=== PATIENT | female | born 2000 | race Caucasian/White ===

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

== ENCOUNTER 2021-06-16 23:21 | Emergency (ER) | payer MEDICAID ==
--- NOTE | 2021-06-16 23:22 | ERPHSYRPT ---
- History of Present Illness Time Seen by Provider: 06/16/21 23:22 Historian: patient, family Physician History: This is a 20 y/o obese white female patient who presents with cp that began this evening. it was central and nonradiating. pt states she is always anxious and smoked a lot more marijuana today than she normally does. marijuana makes her paranoid. she then began looking on internet and became more anxious. she refuses iv but will allow urinalysis, drug screen and blood work. pt has no documented cardiac issues. pt is not sob, she has no abd pain and denies cough and fever. she states, at the time of my h&p she no longer has cp Timing/Duration: today Quality: aching Location: substernal, central Severity of Pain-Max: mild (to mod) Severity of Pain-Current: none Modifying Factors: Improves With: nothing Associated Symptoms: denies symptoms Nitro Today/Relief: no nitro taken today Aspirin Treatment Today: no aspirin today Allergies/Adverse Reactions: No Known Drug Allergies Allergy (Verified 06/16/21 23:21) Home Medications: No Reportable Medications [No Reported Medications] 11/25/19 [History] Hx Tetanus, Diphtheria Vaccination/Date Given: No Hx Influenza Vaccination/Date Given: No Hx Pneumococcal Vaccination/Date Given: No Travel Risk - International Travel Have you traveled outside of the country in past 3 weeks: No - Coronavirus Screening Are you exhibiting any of the following symptoms?: No Close contact with a COVID-19 positive Pt in past 14-21 Days: No - Review of Systems Constitutional: No Symptoms Eyes: No Symptoms Ears, Nose, & Throat: No Symptoms Respiratory: No Symptoms Cardiac: Chest Pain Abdominal/Gastrointestinal: No Symptoms Genitourinary Symptoms: No Symptoms Musculoskeletal: No Symptoms Skin: No Symptoms Neurological: No Symptoms Psychological: No Symptoms Endocrine: No Symptoms Hematologic/Lymphatic: No Symptoms Immunological/Allergic: No Symptoms All Other Systems: Reviewed and Negative - Past Medical History Pertinent Past Medical History: Yes 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 - Past Surgical History Past Surgical History: Yes - Social History Smoking Status: Current every day smoker How long have you smoked: 2 years Exposure to second hand smoke: Yes Drug Use: none Patient Lives Alone: No - Nursing Vital Signs Nursing Vital Signs: Initial Vital Signs Temperature 98.9 F 06/16/21 23:22 Pulse Rate 120 H 06/16/21 23:22 Respiratory Rate 20 06/16/21 23:22 Blood Pressure 151/87 06/16/21 23:22 O2 Sat by Pulse Oximetry 99 06/16/21 23:22 Pain Scale Pain Intensity 6 - Physical Exam General Appearance: no apparent distress, alert, anxiety, obese Eye Exam: PERRL/EOMI, eyes nml inspection Ears, Nose, Throat Exam: normal ENT inspection, moist mucous membranes Neck Exam: normal inspection, non-tender, supple, full range of motion Respiratory Exam: normal breath sounds, lungs clear, airway intact, No chest tenderness, No respiratory distress Cardiovascular Exam: tachycardia Gastrointestinal/Abdomen Exam: soft, normal bowel sounds, No tenderness Pelvic Exam: not done Rectal Exam: not done Back Exam: normal inspection, normal range of motion, No CVA tenderness, No vertebral tenderness Extremity Exam: normal inspection, normal range of motion, pelvis stable Neurologic Exam: alert, oriented x 3, cooperative, 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 no comparison ekg) Ordered Tests: Active Orders 24 hr Category Date Time Status Bladder Tier STAT Care 06/16/21 23:36 Active EKG-ER Only STAT Care 06/16/21 23:36 Active Pulse Oximetry (ED) STAT Care 06/16/21 23:36 Active CBC W DIFF Stat Lab 06/16/21 23:36 Ordered CMP Stat Lab 06/16/21 23:36 Ordered D-DIMER QUANTITATIVE Stat Lab 06/16/21 23:36 Ordered TROPONIN Q3H Lab 06/16/21 23:45 Ordered TROPONIN Q3H Lab 06/17/21 02:45 Ordered TROPONIN Q3H Lab 06/17/21 05:45 Ordered TROPONIN Q3H Lab 06/17/21 08:45 Ordered TROPONIN Q3H Lab 06/17/21 11:45 Ordered Urine Triage Profile Stat Lab 06/16/21 23:55 Ordered - Progress Progress: improved Air Movement: good Progress Note: 06/16/21 23:59 pt now declines blood draw. she is going to sign out ama. i spent a great deal of time explaining to her the need to rule out myocardial infarction, pulmonary embolus or other life threatening entities. she feels now it is her anxiety. she does not want any further testing done. i explained in detail the risks of not completing tests including and the benefits of staying to have tests drawn and resulted. she refuses. she will sign ama form Blood Culture(s) Obtained: No Antibiotics given: No Counseled pt/family regarding: lab results, diagnosis, need for follow-up - Departure Departure Disposition: AMA Clinical Impression: Sinus tachycardia, Chest pain, Anxiety Condition: Fair Critical Care Time: No Referrals: JOE REGALADO [Primary Care Provider] - Follow up/PCP as directed Additional Instructions: stop smoking marijuana. return to Emergency department if symptoms recur/worsen. follow up with primary doctor today for further evaluation and management
[2021-06-16 23:40] VITALS: BP 151/87; PULSE 120
[2021-06-16 23:48] VITALS: O2SAT 97
[2021-06-17 00:17] LABS: Amphetamine,Urine NEGATIVE (NEGATIVE); Barbiturate,Urine NEGATIVE (NEGATIVE); Cocaine,Urine NEGATIVE (NEGATIVE); Methadone,Urine NEGATIVE (NEGATIVE); Opiate,Urine NEGATIVE (NEGATIVE); PCP,Urine NEGATIVE (NEGATIVE); THC,Urine POSITIVE (NEGATIVE)
[2021-06-17 01:19] LABS: Benzodiazepine,Urine NEGATIVE (NEGATIVE)
== END 2021-06-17 00:05 | disposition left against medical advice (07) ==
LOC: ED 23:21
DX: R00.0 Tachycardia, unspecified (principal); R07.9 Chest pain, unspecified; F41.9 Anxiety disorder, unspecified; Z72.0 Tobacco use
CPT/HCPCS: 80307; 93005; 93041; 94760; 99284

== ENCOUNTER 2021-09-01 18:13 | Emergency (ER) | payer MEDICAID ==
--- NOTE | 2021-09-01 19:00 | ERPHSYRPT ---
- History of Present Illness Source: patient Exam Limitations: no limitations Patient Subjective Stated Complaint: Cough Triage Nursing Assessment: Patient ambulated back to ED and transferred self to bed. Patient A+O X 3. Patient's skin pink, warm and dry. Patient complains of occasional non productive cough. Patient states when she cough sometimes she will have intermittent pains in her chest. Patient currently denies pain or discomfort. Lungs clear a/p marquis. Timing/Duration: day(s) (3) Cough Quality/Degree: dry cough Possible Cause: occasional episodes Hx Tetanus, Diphtheria Vaccination/Date Given: No Hx Influenza Vaccination/Date Given: No Hx Pneumococcal Vaccination/Date Given: No Immunizations Up to Date: Yes <ILIR GOMEZ - Last Filed: 09/01/21 18:53> <JOSE BATES - Last Filed: 09/01/21 21:46> - History of Present Illness Time Seen by Provider: 09/01/21 19:00 Physician History: ForPatient is a 24-year-old white female with a cough nonproductive in nature for 3 days she complains of pain with her deep breath or cough says her lungs hurt. She has been dizzy occasionally with some hot flashes she gets the shakes but she denies any sore throat she has had no COVID-vaccine she has had some nausea vomiting and diarrhea but no fever chills or sweats. (ILIR GOMEZ) Allergies/Adverse Reactions: No Known Drug Allergies Allergy (Verified 09/01/21 18:14) Home Medications: No Reportable Medications [No Reported Medications] 11/25/19 [History] Travel Risk - International Travel Have you traveled outside of the country in past 3 weeks: No - Coronavirus Screening Are you exhibiting any of the following symptoms?: No Close contact with a COVID-19 positive Pt in past 14-21 Days: No - Vaccine Status Have you recieved a Covid-19 vaccination: No <ILIR GOMEZ - Last Filed: 09/01/21 18:53> - Review of Systems Constitutional: No Fever, No Chills Eyes: No Symptoms Ears, Nose, & Throat: No Symptoms Respiratory: Cough, No Dyspnea Cardiac: Chest Pain, No Edema, No Syncope Abdominal/Gastrointestinal: Nausea, Vomiting, Diarrhea, No Abdominal Pain Genitourinary Symptoms: No Dysuria Musculoskeletal: No Back Pain, No Neck Pain Skin: No Rash Neurological: No Dizziness, No Focal Weakness, No Sensory Changes Psychological: No Symptoms Endocrine: No Symptoms All Other Systems: Reviewed and Negative <ILIR GOMEZ - Filed: 09/01/21 18:53> - Past Medical History Pertinent Past Medical History: Yes Neurological History: No Pertinent History ENT History: Other Cardiac History: No Pertinent History Respiratory History: No Pertinent History Endocrine Medical History: No Pertinent History Musculoskeletal History: No Pertinent History GI Medical History: No Pertinent History History: No Pertinent History Psycho-Social History: Anxiety Female Reproductive Disorders: No Pertinent History 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 - Past Surgical History Past Surgical History: Yes Neuro Surgical History: No Pertinent History Cardiac: No Pertinent History Respiratory: No Pertinent History Gastrointestinal: No Pertinent History Genitourinary: No Pertinent History Musculoskeletal: No Pertinent History Female Surgical History: No Pertinent History - Social History Smoking Status: Current every day smoker How long have you smoked: 2 years Exposure to second hand smoke: Yes Drug Use: none Patient Lives Alone: No - Female History Hx Last Menstrual Period: last month Hx Now: No <ILIR GOMEZ Filed: 09/01/21 18:53> - Physical Exam General Appearance: no apparent distress, alert Eye Exam: PERRL/EOMI, eyes nml inspection Ears, Nose, Throat Exam: normal ENT inspection, TMs normal, pharynx normal, moist mucous membranes Neck Exam: normal inspection, non-tender, supple, full range of motion Respiratory Exam: normal breath sounds, lungs clear, No respiratory distress Cardiovascular Exam: regular rate/rhythm, normal heart sounds Gastrointestinal/Abdomen Exam: soft, No tenderness Back Exam: normal inspection, No CVA tenderness, No vertebral tenderness Extremity Exam: normal inspection, normal range of motion Neurologic Exam: alert, oriented x 3, cooperative, normal mood/affect, sensation nml, No motor deficits Skin Exam: normal color, warm, dry, No rash Lymphatic Exam: No adenopathy SpO2: 98 <ILIR GOMEZ Filed: 09/01/21 18:53> - Nursing Vital Signs Nursing Vital Signs: Initial Vital Signs Temperature 98.2 F 09/01/21 18:16 Pulse Rate 97 H 09/01/21 18:16 Respiratory Rate 18 09/01/21 18:16 Blood Pressure 133/88 09/01/21 18:16 O2 Sat by Pulse Oximetry 98 09/01/21 18:16 Pain Scale Pain Intensity 2 - Course Nursing assessment & vital signs reviewed: Yes EKG Interpreted by Me: RATE, Sinus Rhythm, NORMAL AXIS, NORMAL INTERVALS, NORMAL QRS <ILIR GOMEZ - Last Filed: 09/01/21 18:53> - Course EKG Interpreted by Me: RATE - Radiology Exams Chest X-ray Interpretation: Interpreted by me (No infiltrate or consolidation. Normal cardiac silhouette. Intact bony thorax.) <JOSE BATES - Last Filed: 09/01/21 21:46> Ordered Tests: Active Orders 24 hr Category Date Time Status EKG-ER Only STAT Care 09/01/21 19:06 Active CHEST 1 VIEW (PORTABLE) Stat Exams 09/01/21 19:06 Taken CBC W DIFF Stat Lab 09/01/21 20:45 Completed CMP Stat Lab 09/01/21 20:45 Completed D-DIMER QUANTITATIVE Stat Lab 09/01/21 20:45 Completed NT PRO BNP Stat Lab 09/01/21 20:45 Completed TROPONIN Q3H Lab 09/01/21 20:45 Completed TROPONIN Q3H Lab 09/01/21 22:15 Ordered TROPONIN Q3H Lab 09/02/21 01:15 Ordered TROPONIN Q3H Lab 09/02/21 04:15 Ordered TROPONIN Q3H Lab 09/02/21 07:15 Ordered Medication Summary Generic Name Dose Route Start Last Admin Trade Name Freq PRN Reason Stop Dose Admin Sodium Chloride 1,000 mls @ 100 mls/hr 09/01/21 19:15 09/01/21 19:59 Sodium Chloride 0.9% 1000 Ml IV 10/01/21 19:14 Not Given .Q10H AKHIL Discontinued Medications Generic Name Dose Route Start Last Admin Trade Name Freq PRN Reason Stop Dose Admin Acetaminophen 650 mg 09/01/21 21:35 09/01/21 21:37 Acetaminophen 325 Mg Tablet PO 09/01/21 21:36 650 mg STAT STA Administration Acetaminophen Confirm 09/01/21 21:36 Acetaminophen 325 Mg Tablet Administered 09/01/21 21:37 Dose 650 mg .ROUTE .STK-MED ONE Alprazolam 0.25 mg 09/01/21 19:48 09/01/21 19:58 Alprazolam 0.25 Mg Tablet PO 09/01/21 19:49 0.25 mg STAT ONE Administration Alprazolam Confirm 09/01/21 19:57 Alprazolam 0.25 Mg Tablet Administered 09/01/21 19:58 Dose 0.25 mg .ROUTE .K-MED ONE Lab/Rad Data: Laboratory Result Diagrams 09/01/21 20:45 09/01/21 20:45 Laboratory Results 09/01/21 09/01/21 09/01/21 Range/Units 20:45 20:45 20:45 WBC (4.0-10.5) x10^3/uL RBC (4.1-5.4) x10^6/uL Hgb (12.0-16.0) g/dL Hct (35-47) % MCV (78-100) fL MCH (26-32) pg MCHC (32-36) g/dL RDW (11.5-14.0) % Plt Count (150-450) x10^3/uL MPV (7.5-11.0) fL Gran % (36.0-66.0) % Immature Gran % (Auto) (0.00-0.4) % Nucleat RBC Rel Count (0.00-0.1) % Eos # (Auto) (0-0.5) x10^3/uL Immature Gran # (Auto) (0.00-0.03) x10^3u/L Absolute Lymphs (auto) (1.0-4.6) x10^3/uL Absolute Monos (auto) (0.0-1.3) x10^3/uL Absolute Nucleated RBC (0.00-0.01) x10^3u/L Lymphocytes % (24.0-44.0) % Monocytes % (0.0-12.0) % Eosinophils % (0.00-5.0) % Basophils % (0.0-0.4) % Absolute Granulocytes (1.4-6.9) x10^3/uL Basophils # (0-0.4) x10^3/uL D-Dimer 0.30 (0.0-0.50) mg/L Sodium 140 (137-145) mmol/L Potassium 4.0 (3.5-5.1) mmol/L Chloride 103 (98-107) mmol/L Carbon Dioxide 29 (22-30) mmol/L Anion Gap 12.4 (5-15) MEQ/L BUN 10 (7-17) mg/dL Creatinine 0.60 (0.52-1.04) mg/dL Estimated GFR > 60.0 ML/MIN Glucose 102 (74-106) mg/dL Calcium 9.7 (8.4-10.2) mg/dL Total Bilirubin 0.30 (0.2-1.3) mg/dL AST 22 (14-36) U/L ALT 19 (0-35) U/L Alkaline Phosphatase 90 (38-126) U/L Troponin I < 0.012 (0.000-0.034) ng/mL NT-Pro-B Natriuret Pep 38.1 (0-450) pg/mL Serum Total Protein 7.8 (6.3-8.2) g/dL Albumin 4.2 (3.5-5.0) g/dL 09/01/21 Range/Units 20:45 WBC 11.0 H (4.0-10.5) x10^3/uL RBC 5.40 (4.1-5.4) x10^6/uL Hgb 11.4 L (12.0-16.0) g/dL Hct 39.4 (35-47) % MCV 73.0 L (78-100) fL MCH 21.1 L (26-32) pg MCHC 28.9 L (32-36) g/dL RDW 18.1 H (11.5-14.0) % Plt Count 453 H (150-450) x10^3/uL MPV 9.9 (7.5-11.0) fL Gran % 58.4 (36.0-66.0) % Immature Gran % (Auto) 0.3 (0.00-0.4) % Nucleat RBC Rel Count 0.0 (0.00-0.1) % Eos # (Auto) 0.38 (0-0.5) x10^3/uL Immature Gran # (Auto) 0.03 (0.00-0.03) x10^3u/L Absolute Lymphs (auto) 3.49 (1.0-4.6) x10^3/uL Absolute Monos (auto) 0.61 (0.0-1.3) x10^3/uL Absolute Nucleated RBC 0.00 (0.00-0.01) x10^3u/L Lymphocytes % 31.6 (24.0-44.0) % Monocytes % 5.5 (0.0-12.0) % Eosinophils % 3.4 (0.00-5.0) % Basophils % 0.8 (0.0-0.4) % Absolute Granulocytes 6.44 (1.4-6.9) x10^3/uL Basophils # 0.09 (0-0.4) x10^3/uL D-Dimer (0.0-0.50) mg/L Sodium (137-145) mmol/L Potassium (3.5-5.1) mmol/L Chloride (98-107) mmol/L Carbon Dioxide (22-30) mmol/L Anion Gap (5-15) MEQ/L BUN (7-17) mg/dL Creatinine (0.52-1.04) mg/dL Estimated GFR ML/MIN Glucose (74-106) mg/dL Calcium (8.4-10.2) mg/dL Total Bilirubin (0.2-1.3) mg/dL AST (14-36) U/L ALT (0-35) U/L Alkaline Phosphatase (38-126) U/L Troponin I (0.000-0.034) ng/mL NT-Pro-B Natriuret Pep (0-450) pg/mL Serum Total Protein (6.3-8.2) g/dL Albumin (3.5-5.0) g/dL - Progress Progress: improved Air Movement: good Blood Culture(s) Obtained: No Antibiotics given: No Counseled pt/family regarding: lab results, diagnosis, need for follow-up, rad results <JOSE BATES - Last Filed: 09/01/21 21:46> - Progress Progress Note: Patient reassessed. She feels well. Patient has a mild headache. We administered Tylenol. Patient is ready for discharge. D-dimer negative. Tro ponin negative. EKG normal sinus rhythm. Chest x-ray negative. Patient is 20-year-old female with no comorbidities. No indication for further work-up at this time. Will discharge home. Patient agrees to follow-up with primary care doctor within [address] Gomez felt patient had bronchitis based on his physical examination. Very well possible that the bronchitis is minor. At this point lungs are clear. Chest x-ray is nonremarkable. No coughing observed by Dr. Bates. No respiratory distress. Patient speaking full clear sentences. No indication for treatment at this time. Patient symptomology is likely to resolve with some time. Portions of this note were created with voice recognition technology. There may be grammatical, spelling, punctuation or sound alike errors 09/01/21 21:42 (JOSE BATES) - Departure Departure Disposition: Home Critical Care Time: No <ILIR GOMEZ - Last Filed: 09/01/21 18:53> <JOSE BATES - Last Filed: 09/01/21 21:46> - Departure Clinical Impression: Bronchitis, Thrombocytosis Condition: Stable Referrals: JOE REGALADO [COURTESY STAFF] - Follow up/PCP as directed Additional Instructions: Discharge/Care Plan CHAVAHUSSEINROJELIO ELLA was seen on 09/01/21 in the Emergency Room. The patient was counseled regarding Diagnosis,Lab results, Imaging studies, need for follow up and when to return to the Emergency Room. Prescriptions given: Discharge Note I have spoken with the patient and/or caregivers. I have explained the patient's condition, diagnosis and treatment plan based on the information available to me at this time. I have answered the patient's and/or caregiver's questions and addressed any concerns. The patient and/or caregivers have as good understanding of the patient's diagnosis, condition and treatment plan as can be expected at this point. The vital signs have been stable. The patient's condition is stable and appropriate for discharge from the emergency department. The patient will pursue further outpatient evaluation with the primary care ph ysician or other designated or consulting physician as outlined in the discharge instructions. The patient and/or caregivers are agreeable to this plan of care and follow-up instructions have been explained in detail. The patient and/or caregivers have received these instruction. The patient/and or caregivers are aware that any significant change in condition or worsening of symptoms should prompt an immediate return to this or the closest emergency department or call 911.
[2021-09-01] MEDS ORDERED: Sodium Chloride 0.9% 1000 ML 1,000 ML ONE (19:32)
[2021-09-01] MEDS: Sodium Chloride 0.9% 1000 ML 1,000 ML IV SCH ×4 (19:33→21:44)
[2021-09-01] MEDS ORDERED: xanAX 0.25 MG PO ONE (19:48)
[2021-09-01] MEDS ORDERED: xanAX 0.25 MG ONE (19:57)
[2021-09-01 20:19] VITALS: BP 132/79; PULSE 107; O2SAT 97
[2021-09-01 20:51] LABS: Absolute Neutrophil Ct (ANC) 6.44 x10^3/uL (1.4-6.9); Basophil (Absolute #) 0.09 x10^3/uL (0-0.4); Eosinophil % 3.4 % (0.00-5.0); Eosinophil (Absolute #) 0.38 x10^3/uL (0-0.5); Hematocrit 39.4 % (35-47); Hemoglobin 11.4 g/dL (12.0-16.0); Lymphocyte (Absolute #) 3.49 x10^3/uL (1.0-4.6); Lymphocytes % 31.6 % (24.0-44.0); Mean Corpuscular Hemoglobin 21.1 pg (26-32); Mean Corpuscular Hgb Concent. 28.9 g/dL (32-36); Mean Platelet Volume 9.9 fL (7.5-11.0); Monocyte (Absolute #) 0.61 x10^3/uL (0.0-1.3); Monocytes % 5.5 % (0.0-12.0); Neutrophil % 58.4 % (36.0-66.0); Platelet Count 453 x10^3/uL (150-450); Red Cell Distribution Width 18.1 % (11.5-14.0)
[2021-09-01 21:11] LABS: ALBUMIN 4.2 g/dL (3.5-5.0); ALKALINE PHOSPHATASE 90 U/L (38-126); ANION GAP 12.4 MEQ/L (5-15); BLOOD UREA NITROGEN 10 mg/dL (7-17); CHLORIDE 103 mmol/L (98-107); Calcium 9.7 mg/dL (8.4-10.2); Carbon Dioxide 29 mmol/L (22-30); EST GLOMERULAR FILTRATION RATE > 60.0 ML/MIN; Glucose 102 mg/dL (74-106); NT PRO BNP 38.1 pg/mL (0-450); SGOT/AST 22 U/L (14-36); SGPT/ALT 19 U/L (0-35); SODIUM 140 mmol/L (137-145); Total Protein 7.8 g/dL (6.3-8.2)
[2021-09-01] MEDS ORDERED: TYLENOL 325 MG PO STA (21:35)
[2021-09-01] MEDS ORDERED: TYLENOL 325 MG ONE (21:36)
[2021-09-01 23:52] LABS: Slide Review 1 YES
--- NOTE | 2021-09-02 09:02 | XRAY ---
Indication: Cough. Comparison: None Portable chest inflated and clear. Heart is not enlarged. Bony thorax intact.
== END 2021-09-01 21:51 | disposition home or self-care (01) ==
LOC: ED 18:13
DX: J40 Bronchitis, not specified as acute or chronic (principal); D75.839 Thrombocytosis, unspecified; R05.1 Acute cough; R42 Dizziness and giddiness; R11.2 Nausea with vomiting, unspecified; R19.7 Diarrhea, unspecified; Z72.0 Tobacco use; Z28.310 Unvaccinated for COVID-19; R51.9 Headache, unspecified
CPT/HCPCS: 36415; 71045; 80053; 83880; 84484; 85025; 85379; 93005; 99284; A9270-GY